=== PATIENT | female | born 1955 | race Caucasian/White ===

== ENCOUNTER 2021-01-09 22:34 | Emergency (ER) | payer MEDICARE ==
[2021-01-09] MEDS ORDERED: Ondansetron PF 4 MG/2 ML Vial ONE (22:50)
[2021-01-09 23:14] LABS: ALT (SGPT) 19 U/L (8-55); AST (SGOT) 18 U/L (5-34); Albumin 4.4 g/dL (3.4-4.8); Alkaline Phosphatase 74 U/L (40-110); Anion Gap 16 mmol/L (10-20); BUN (Urea Nitrogen) 19 mg/dL (9.8-20.1); Bilirubin, Total 0.3 mg/dL (0.2-1.2); Calc. Creatinine Clearance 0 mL/min (70-130); Calcium 9.9 mg/dL (7.8-10.44); Carbon Dioxide 22 mmol/L (23-31); Chloride 102 mmol/L (98-107); Globulin 2.9 g/dL (2.4-3.5); Glucose 116 mg/dL (80-115); Potassium 3.5 mmol/L (3.5-5.1); Protein, Total 7.3 g/dL (5.8-8.1); Sodium 136 mmol/L (136-145)
[2021-01-09 23:35] LABS: Monocytes 7 % (0-10)
[2021-01-09 23:37] LABS: Lymphocytes 33 % (21-51); Neutrophil 49 % (42-75); Reactive Lymphocytes 10 % (0-10)
[2021-01-09 23:38] LABS: Platelet Morphology Comment Appears Increased
[2021-01-09 23:42] LABS: Hemoglobin 12.4 g/dL (12.0-15.5); Manual Diff?? YES; Mean Corpuscular HGB CONC 34.3 g/dL (32.0-36.0); Mean Corpuscular Hemoglobin 29.5 pg (27.0-33.0); Mean Platelet Volume 9.3 fl (7.4-10.4); Platelet Count 423 10x3/uL (150-450); RBC Distribution Width 13.3 % (11.5-14.5); White Blood Cell (WBC) Count 14.6 10x3/uL (3.5-10.5)
[2021-01-09 23:43] LABS: MDiff Complete? YES; RBC Morphology Normal
== END 2021-01-09 23:40 | disposition short-term general hospital (02) ==
LOC: CSHERS 22:34
DX: I62.9 Nontraumatic intracranial hemorrhage, unspecified (principal); R11.10 Vomiting, unspecified; I10 Essential (primary) hypertension; Z79.82 Long term (current) use of aspirin
CPT/HCPCS: 70450; 71045; 80053; 84484; 85025; 93005; 96374; J2405

== ENCOUNTER 2021-02-07 12:24 | Outpatient (CLI) | payer MEDICARE, OTHER | END 2021-02-07 12:25 | disposition home or self-care (01) | LOC: CSHCT 12:24 | PROVIDERS: ATTEND Family Medicine | DX: Q28.2 Arteriovenous malformation of cerebral vessels (principal); I61.5 Nontraumatic intracerebral hemorrhage, intraventricular; Z86.73 Personal history of transient ischemic attack (TIA), and cerebral infarction without residual deficits | CPT/HCPCS: 70450 ==